=== PATIENT | female | born 1945 | race Caucasian/White ===

== ENCOUNTER → 2017-10-30 09:00 | Outpatient (CLI) | payer OTHER ==
[~2017-10-30 09:00] MED LIST: CRESTOR20 MG; MICARDIS80 MG; VERAPAMIL ER240 MG
== END | disposition home or self-care (01) ==
LOC: EKG 09:00 → ADM 11:00 → CIR.AMB 11-05 11:00 → EDSTATUS 11-06 11:00 → CIR.AMB 11-06 13:45
DX: Z01.810 Encounter for preprocedural cardiovascular examination (principal); M75.101 Unspecified rotator cuff tear or rupture of right shoulder, not specified as traumatic; I10 Essential (primary) hypertension

== ENCOUNTER 2018-04-19 20:34 | Emergency (ER) | payer OTHER ==
[~2018-04-19] VITALS: Ht 154.9 cm; Wt 63.5 kg
[2018-04-21] MEDS ORDERED: RESTORIL15 M1 (18:25)
== END 2018-04-19 22:57 | disposition home or self-care (01) ==
LOC: ER 20:34
DX: R51 Headache (principal); I10 Essential (primary) hypertension

== ENCOUNTER 2022-01-21 05:10 | Day surgery (SDC) | payer OTHER ==
[~2022-01-21 05:10] MED LIST changes: +RESTORIL15 M1
[2022-01-21] MEDS ORDERED: IBU600 MG PO (09:01)
[2022-01-21] MEDS ORDERED: CIPRO500 MG PO (09:02)
== END 2022-01-21 12:15 | disposition home or self-care (01) ==
LOC: CIR.AMB 05:10 → O/R 05:10 → SURH 05:10 → EDSTATUS 10:30 → SURH 11:45 → O/R 12:15 → CIR.AMB 12:15
PROVIDERS: ATTEND Obstetrics & Gynecology Gynecology
DX: N81.12 Cystocele, lateral (principal); Z20.822 Contact with and (suspected) exposure to COVID-19; Z88.2 Allergy status to sulfonamides; K21.9 Gastro-esophageal reflux disease without esophagitis; K76.0 Fatty (change of) liver, not elsewhere classified

== ENCOUNTER 2023-08-20 12:13 | Emergency (ER) | payer OTHER ==
[~2023-08-20] VITALS: Ht 154.9 cm; Wt 53.5 kg
[~2023-08-20 12:13] MED LIST changes: +CIPRO500 MG PO; +IBU600 MG PO
[2023-08-20] MEDS ORDERED: PEPCID AC20 MG PO (13:38)
== END 2023-08-20 13:45 | disposition home or self-care (01) ==
LOC: ER 12:14
DX: R11.0 Nausea (principal); Z88.2 Allergy status to sulfonamides; Z98.890 Other specified postprocedural states